=== PATIENT | female | born 1990 | race African-American/Black ===

== ENCOUNTER 2016-12-23 05:34 | Emergency (ER) | payer MEDICARE, OTHER ==
[2016-12-23] MEDS ORDERED: Dexamethasone 4 mg/ml Vial ONE (06:01)
[2016-12-23] MEDS ORDERED: Ibuprofen 800 MG TAB ONE (06:03)
== END 2016-12-23 06:33 | disposition home or self-care (01) ==
LOC: ERS 05:34
DX: J02.9 Acute pharyngitis, unspecified (principal); F31.9 Bipolar disorder, unspecified; F20.9 Schizophrenia, unspecified; F17.210 Nicotine dependence, cigarettes, uncomplicated
CPT/HCPCS: 99282; J1100

== ENCOUNTER 2017-09-28 21:50 | Emergency (ER) | payer MEDICARE, OTHER ==
[~2017-09-28 21:50] MED LIST: ISOVUE-370 76%-LOCM 1 ML ONE
[2017-09-28 22:21] LABS: #Basophils 0.1 thou/uL (0.0-0.2); #Eosinphils 0.6 thou/uL (0.0-0.7); #Lymphocytes 2.9 thou/uL (1.20-3.40); #Monocytes 0.4 thou/uL (0.11-0.59); #Neutrophils 3.6 thou/uL (1.40-6.50); %Basophils 1.1 % (0.0-1.0); %Eosinophils 7.5 % (0.0-10.0); %Lymphocytes 38.5 % (21.0-51.0); %Monocytes 5.8 % (0.0-10.0); Hemoglobin 13.5 g/dL (12.0-16.0); Mean Corpuscular HGB CONC 34.6 g/dL (32.0-36.0); Mean Corpuscular Hemoglobin 31.7 pg (27.0-31.0); Mean Corpuscular Volume 91.8 fL (78.0-98.0); Platelet Count 348 thou/uL (130-400); RBC Distribution Width 11.8 % (11.5-14.5); Red Blood Cell (RBC) Count 4.26 mill/uL (4.20-5.40); White Blood Cell (WBC) Count 7.6 thou/uL (4.8-10.8)
[2017-09-28 22:40] LABS: BHCG - Serum Negative (NEGATIVE); Pregs Control Background? CLEAR/WHITE (CLR/WHITE); Pregs Control Bar Appear? YES (CONTROL BAR)
[2017-09-28 22:50] LABS: ALT (SGPT) 18 U/L (8-55); AST (SGOT) 16 U/L (5-34); Albumin 4.4 g/dL (3.5-5.0); Alkaline Phosphatase 51 U/L (40-150); Anion Gap 15 mmol/L (10-20); BUN (Urea Nitrogen) 11 mg/dL (7.0-18.7); Bilirubin, Total 0.3 mg/dL (0.2-1.2); Calc. Creatinine Clearance 0 mL/min (70-130); Calcium 9.5 mg/dL (7.8-10.44); Carbon Dioxide 21 mmol/L (22-29); Chloride 105 mmol/L (98-107); Estimated GFR-MDRD 86; Globulin 3.6 g/dL (2.4-3.5); Glucose 109 mg/dL (70-105); Lipase 34 U/L (8-78); Potassium 3.7 mmol/L (3.5-5.1); Sodium 137 mmol/L (136-145)
[2017-09-28] MEDS ORDERED: Fentanyl 100 MCG/2 ML VIAL ONE (23:18)
[2017-09-28] MEDS ORDERED: Ketorolac Tromethamine 30 MG/ML VIAL ONE (23:18)
--- NOTE | 2017-09-28 23:28 | CT ---
CT OF ABDOMEN AND PELVIS PERFORMED WITH INTRAVENOUS CONTRAST ENHANCEMENT: 09/28/17 COMPARISON: 07/29/15 and 12/16/13 studies. HISTORY: Abdominal pain. The lung bases are clear. the liver, spleen, and pancreas regions appear unremarkable. Gallbladder i s somewhat contracted. Right and left adrenal glands are normal in appearance. Right and left kidneys are normal in size. No obstruction or renal calculi is seen. There is no significant periaortic or mesenteric adenopathy. T he stomach was mildly distended. The descending colon shows questionable slight wall thickening, but this may just be on the basis of underdistention as this is a fairly focal area involving the distal portion of the descending colon. CT OF PELVIS PERFORMED WITH CONTRAST ENHANCEMENT: Bilateral tubal ligation is noted. The endometrium is slightly thickened. There is follicles involvi ng both adnexa with an irregular shaped right ovarian follicle suggesting it is partially ruptured. T here is only trace free fluid present. The appendix appears unremarkable. IMPRESSION: 1. Bilateral tubal ligation. Partially collapsed follicle involving the right adnexa. 2. Questionable wall thickening to the descending colon. I think this is just related to underdi stention. POS: [facility]
--- NOTE | 2017-09-29 00:04 | ULT ---
PELVIC ULTRASOUND: 09/28/17 HISTORY: Pelvic pain. COMPARISON: CT examination done earlier. Real time images of the pelvis were performed transabdominally. These show a uterus measuring 8.2 cm in length. Endometrium is thickened. The left ovary is normal in size and appearance. Right ovary is slightly larger as compared to the le ft. Small follicles are seen involving the adnexa. DOPPLER EVALUATION WITH SPECTRAL ANALYSIS: Normal flow is shown to both adnexa. There appears to be some debris within the bladder. Clinical correlation as to any findings that sugg est a UTI. IMPRESSION: 1. No evidence of torsion. Right ovary is slightly larger than the left. It is somewhat more het erogeneous in appearance but shows flow. 2. Debris within the bladder. Clinical correlation as to any symptoms that would suggest UTI. POS: [facility]
[2017-09-29 00:20] LABS: Bilirubin Negative (Negative); Blood, Urine Negative (Negative); Clarity CLOUDY (Clear); Glucose, Urine (Dipstick) Negative (Negative); Leukocyte Negative (Negative); Nitrite Negative (Negative); Protein, Urine (Dipstick) Negative (Neg-Trace); Specific Gravity, Urine 1.042 (1.002-1.036)
[2017-09-29] MEDS ORDERED: Fentanyl 100 MCG/2 ML VIAL ONE (02:01)
[2017-09-29] MEDS ORDERED: cefTRIAXone\\ROCEPHIN 250 MG VIAL ONE (02:13)
[2017-10-01 22:39] LABS: Chlamydia by PCR Not Detected (NotDetected); GC by PCR Not Detected (NotDetected)
== END 2017-09-29 02:20 | disposition home or self-care (01) ==
LOC: ERS 21:50
DX: N83.291 Other ovarian cyst, right side (principal); N73.9 Female pelvic inflammatory disease, unspecified; J45.909 Unspecified asthma, uncomplicated; F31.9 Bipolar disorder, unspecified; F41.9 Anxiety disorder, unspecified; F20.9 Schizophrenia, unspecified; F17.210 Nicotine dependence, cigarettes, uncomplicated
CPT/HCPCS: 36415; 74177; 76856; 80053; 81003; 83690; 84703; 85025; 87480; 87491; 87510; 87591; 87660; 96361; 96374; 96375; 96376; J0696; J1885; J3010

== ENCOUNTER 2017-10-26 08:13 | Emergency (ER) | payer MEDICARE, OTHER ==
[2017-10-26 09:16] LABS: #Basophils 0.1 thou/uL (0.0-0.2); #Eosinphils 0.3 thou/uL (0.0-0.7); #Lymphocytes 2.1 thou/uL (1.20-3.40); #Monocytes 0.4 thou/uL (0.11-0.59); #Neutrophils 2.2 thou/uL (1.40-6.50); %Basophils 1.1 % (0.0-1.0); %Eosinophils 5.2 % (0.0-10.0); %Lymphocytes 41.9 % (21.0-51.0); %Monocytes 7.3 % (0.0-10.0); %Neutrophils 44.5 % (42.0-75.0); Hemoglobin 12.5 g/dL (12.0-16.0); Mean Corpuscular HGB CONC 34.2 g/dL (32.0-36.0); Mean Corpuscular Hemoglobin 31.8 pg (27.0-31.0); Mean Platelet Volume 7.4 fL (7.4-10.4); Platelet Count 249 thou/uL (130-400); RBC Distribution Width 11.1 % (11.5-14.5); Red Blood Cell (RBC) Count 3.92 mill/uL (4.20-5.40)
[2017-10-26] MEDS ORDERED: Ondansetron HCl/PF 4 MG/2 ML Vial ONE (09:21)
[2017-10-26] MEDS ORDERED: Ketorolac Tromethamine 60 MG/2 ML VIAL ONE (09:21)
[2017-10-26] MEDS ORDERED: Ondansetron ODT 4 MG TAB ONE (09:22)
[2017-10-26 09:23] LABS: ALT (SGPT) 14 U/L (8-55); AST (SGOT) 10 U/L (5-34); Alkaline Phosphatase 42 U/L (40-150); Anion Gap 13 mmol/L (10-20); BUN (Urea Nitrogen) 6 mg/dL (7.0-18.7); Bilirubin, Total 0.3 mg/dL (0.2-1.2); Calc. Creatinine Clearance 0 mL/min (70-130); Calcium 8.5 mg/dL (7.8-10.44); Carbon Dioxide 22 mmol/L (22-29); Chloride 108 mmol/L (98-107); Estimated GFR-MDRD Greater than 90; Globulin 3.1 g/dL (2.4-3.5); Glucose 97 mg/dL (70-105); Potassium 3.6 mmol/L (3.5-5.1); Protein, Total 7.1 g/dL (6.0-8.3); Sodium 139 mmol/L (136-145)
--- NOTE | 2017-10-26 10:52 | ULT ---
PELVIC ULTRASOUND: INDICATIONS: Pelvic pain. TECHNIQUE: A transabdominal ultrasound of the pelvis is performed. FINDINGS: The uterus appears unremarkable in size and position, measuring 10 x 4.7 x 4.9 cm. The endometrial stripe is prominent, measuring 10 to 12 mm. Both ovaries are identified and appear unremarkable. Color Doppler with spectral analysis demonstrat es blood flow to both ovaries. There is a small amount of fluid in the left adnexa and a small amount of fluid in the cul-de-sac. IMPRESSION: 1. Mildly thickened endometrium. 2. Evidence of free fluid in the left adnexa and cul-de-sac. Recommend correlation with serum hCG. POS: [facility]
[2017-10-26 11:33] LABS: Bilirubin Negative (Negative); Blood, Urine Negative (Negative); Clarity CLOUDY (Clear); Glucose, Urine (Dipstick) Negative (Negative); Leukocyte Negative (Negative); Nitrite Positive (Negative); Protein, Urine (Dipstick) Negative (Neg-Trace); Specific Gravity, Urine 1.016 (1.002-1.036); pH, Urine 6.5 (5.0-9.0)
[2017-10-26 11:35] LABS: Bacteria/HPF 1+ HPF (None Seen); Hyaline Casts/LPF 4-6 HYALINE CAST LPF (0-3 Hyaline); Pathc Cast-AUWi Flag 1.01 (0-2.49); RBC/HPF 0-3 HPF (0-3); WBC/HPF 0-3 HPF (0-3)
[2017-10-26 11:37] LABS: Pregnancy Test - Urine (BHCG) Negative (Negative); Pregu Control Background? CLEAR/WHITE (CLR/WHITE); Pregu Control Bar Appear? YES (CONTROL BAR); Specific Gravity 1.016 (1.002-1.036)
[2017-10-28 19:02] LABS: Chlamydia by PCR Not Detected (NotDetected); GC by PCR Not Detected (NotDetected)
== END 2017-10-26 12:18 | disposition home or self-care (01) ==
LOC: ERS 08:13
DX: R10.2 Pelvic and perineal pain (principal); F41.9 Anxiety disorder, unspecified; F20.9 Schizophrenia, unspecified; F17.210 Nicotine dependence, cigarettes, uncomplicated; J45.909 Unspecified asthma, uncomplicated; Z71.6 Tobacco abuse counseling
CPT/HCPCS: 36415; 76856; 80053; 81003; 81015; 81025; 85025; 87480; 87491; 87510; 87591; 87660; 96372; 99406; J1885; J2405; Q0162

== ENCOUNTER 2018-06-06 16:29 | Emergency (ER) | payer MEDICARE, OTHER ==
--- NOTE | 2018-06-06 17:52 | CT ---
FHead CT without contrast 06/06/2018: COMPARISON: none HISTORY: Injury, trauma, pain TECHNIQUE: Axial CT imaging at 5 mm intervals from vertex through skull base without contrast FINDINGS: The imaged paranasal sinuses and mastoid air cells appear well aerated. There is no displa esme calvarial fracture. No intracranial hemorrhage, midline shift, mass effect, or ventricular enlargement is noted. There is a focal area of posterior right-sided scalp swelling near the vertex consistent with the pro vided history of recent trauma. IMPRESSION: No intracranial hemorrhage or displaced calvarial fracture. Focal area of scalp swelling near the vertex posteriorly on the right consistent with recent trauma.
[2018-06-06] MEDS ORDERED: Ketorolac Tromethamine 60 MG/2 ML VIAL ONE (18:17)
== END 2018-06-06 18:28 | disposition home or self-care (01) ==
LOC: ERS 16:29
DX: S00.03XA Contusion of scalp, initial encounter (principal); S20.212A Contusion of left front wall of thorax, initial encounter; S80.12XA Contusion of left lower leg, initial encounter; S80.11XA Contusion of right lower leg, initial encounter; J45.909 Unspecified asthma, uncomplicated; F41.9 Anxiety disorder, unspecified; F31.9 Bipolar disorder, unspecified; F20.9 Schizophrenia, unspecified; F17.210 Nicotine dependence, cigarettes, uncomplicated; Y04.0XXA Assault by unarmed brawl or fight, initial encounter
CPT/HCPCS: 70450; 96372; J1885

== ENCOUNTER 2018-09-12 11:21 | Emergency (ER) | payer MEDICARE, OTHER ==
[2018-09-12 11:58] LABS: #Eosinphils 0.1 thou/uL (0.0-0.7); #Lymphocytes 1.2 thou/uL (1.20-3.40); #Monocytes 0.5 thou/uL (0.11-0.59); #Neutrophils 6.2 thou/uL (1.40-6.50); %Basophils 0.4 % (0.0-1.0); %Eosinophils 1.8 % (0.0-10.0); %Lymphocytes 14.6 % (21.0-51.0); %Monocytes 6.2 % (0.0-10.0); %Neutrophils 77.1 % (42.0-75.0); Hemoglobin 13.4 g/dL (12.0-16.0); Mean Corpuscular Hemoglobin 30.7 pg (27.0-31.0); Mean Corpuscular Volume 90.4 fL (78.0-98.0); Mean Platelet Volume 7.2 fL (7.4-10.4); Platelet Count 303 thou/uL (130-400); RBC Distribution Width 11.4 % (11.5-14.5); Red Blood Cell (RBC) Count 4.38 mill/uL (4.20-5.40); White Blood Cell (WBC) Count 8.1 thou/uL (4.8-10.8)
[2018-09-12 12:27] LABS: ALT (SGPT) 11 U/L (8-55); AST (SGOT) 10 U/L (5-34); Albumin 3.8 g/dL (3.5-5.0); Alkaline Phosphatase 53 U/L (40-150); Anion Gap 12 mmol/L (10-20); BUN (Urea Nitrogen) 6 mg/dL (7.0-18.7); Bilirubin, Total 0.3 mg/dL (0.2-1.2); Calc. Creatinine Clearance 0 mL/min (70-130); Calcium 8.5 mg/dL (7.8-10.44); Carbon Dioxide 20 mmol/L (22-29); Chloride 107 mmol/L (98-107); Estimated GFR-MDRD Greater than 90; Globulin 3.5 g/dL (2.4-3.5); Glucose 95 mg/dL (70-105); Potassium 3.3 mmol/L (3.5-5.1); Protein, Total 7.3 g/dL (6.0-8.3); Sodium 136 mmol/L (136-145)
== END 2018-09-12 13:18 | disposition left against medical advice (07) ==
LOC: ERS 11:21
DX: Z53.21 Procedure and treatment not carried out due to patient leaving prior to being seen by health care provider (principal)
CPT/HCPCS: 36415; 80053; 85025

== ENCOUNTER 2018-12-24 12:40 | Emergency (ER) | payer MEDICARE, OTHER ==
[2018-12-24] MEDS ORDERED: cefTRIAXone\\ROCEPHIN 500 MG VIAL ONE (13:47)
[2018-12-24] MEDS ORDERED: Dexamethasone 4 mg/ml Vial ONE (13:47)
[2018-12-24] MEDS ORDERED: Sterile Water 10 ML ONE (13:47)
[2018-12-24] MEDS ORDERED: Lidocaine 1% PF 5 ML VIAL ONE (13:51)
--- NOTE | 2018-12-24 14:01 | RAD ---
EXAM: Single view of the chest HISTORY: Cough COMPARISON: 01/13/2010 FINDINGS: Single view of the chest shows a normal sized cardiomediastinal silhouette. There is no darcy dence of consolidation, mass, or pleural effusion. The bones are unremarkable. IMPRESSION: No evidence of acute cardiopulmonary disease
== END 2018-12-24 14:54 | disposition home or self-care (01) ==
LOC: ERS 12:40
DX: B34.9 Viral infection, unspecified (principal); J45.909 Unspecified asthma, uncomplicated; F31.9 Bipolar disorder, unspecified; F20.9 Schizophrenia, unspecified; F17.210 Nicotine dependence, cigarettes, uncomplicated
CPT/HCPCS: 71045; 87804; 96372; J0696; J1100; J2001

== ENCOUNTER 2020-10-24 08:56 | Emergency (ER) | payer MEDICARE, OTHER ==
[2020-10-24] MEDS ORDERED: Dexamethasone 10 MG/ML VIAL ONE (09:40)
== END 2020-10-24 11:05 | disposition home or self-care (01) ==
LOC: ERS 08:56
DX: U07.1 COVID-19 (principal); F17.210 Nicotine dependence, cigarettes, uncomplicated
CPT/HCPCS: 71045; 99284; J1100

== ENCOUNTER 2022-11-13 20:01 | Emergency (ER) | payer OTHER | END 2022-11-13 22:39 | disposition home or self-care (01) | LOC: ERS 20:01 | DX: S42.141A Displaced fracture of glenoid cavity of scapula, right shoulder, initial encounter for closed fracture (principal); Z87.891 Personal history of nicotine dependence; W19.XXXA Unspecified fall, initial encounter ==